=== PATIENT | male | born 1975 | race Hispanic/Latino ===

== ENCOUNTER 2022-05-04 08:47 | Emergency (ER) | payer SELFPAY ==
[2022-05-04] MEDS ORDERED: Dexamethasone 10 MG/ML VIAL ONE (09:05)
== END 2022-05-04 09:18 | disposition home or self-care (01) ==
LOC: MADERS 08:47
DX: J02.9 Acute pharyngitis, unspecified (principal)
CPT/HCPCS: 87081; 87430; 96372; 99283; J1100